=== PATIENT | female | born 1995 | race African-American/Black ===

== ENCOUNTER 2021-04-13 20:44 | Inpatient (IN) | payer OTHER ==
[~2021-04-13] VITALS: Ht 157.5 cm; Wt 72.0 kg
--- NOTE | 2021-04-13 21:07 | PHYS DOC ---
General Adult EDM: Chief Complaint: MULTIPLE COMPLAINTS HPI: HPI: 25-year-old female presents with 1 day history of fever, chills, body aches, sore throat. She woke up this morning and had a sore throat and felt generally terrible. Throughout the day she has had fatigue and body aches. Prior to arrival in the emergency room her fever increased to 102 and that is why she came in. She also has a very sore throat. She was vaccinated against COVID-19. Her last dose was 1 month ago. She was feeling fine yesterday. Review of Systems: Review of Systems: Constitutional: Fever, chills, body aches, fatigue Eyes: Denies change in visual acuity HENT: sore throat Respiratory: Denies cough or shortness of breath Cardiovascular: Denies chest pain or edema GI: Denies abdominal pain, nausea, vomiting, bloody stools or diarrhea : Denies dysuria Musculoskeletal: Denies back pain or joint pain Integument: Denies rash Neurologic: Denies headache, focal weakness or sensory changes Endocrine: Denies polyuria or polydipsia Lymphatic: Denies swollen glands Psychiatric: Denies depression or anxiety Allergies: Allergies: Allergies Coded Allergies Type Severity Reaction Last Updated Verified No Known Drug Allergies 04/13/21 No Physical Exam: PE: Constitutional: Well developed, well nourished, no acute distress, non-toxic appearance. [] HENT: Normocephalic, atraumatic, bilateral external ears normal, oropharynx dry, erythematous with bilateral tonsillar exudates nose normal. [] Eyes: PERRLA, EOMI, conjunctiva normal, no discharge. [] Neck: Normal range of motion, no tenderness, supple, no stridor. Bilateral prominent anterior cervical lymph nodes. [] Cardiovascular: Heart rate 137, regular rhythm, no murmur [] Lungs & Thorax: Bilateral breath sounds clear to auscultation [] Abdomen: Bowel sounds normal, soft, no tenderness, no masses, no pulsatile masses. [] Skin: Warm, dry, no erythema, no rash. [] Back: No tenderness, no CVA tenderness. [] Extremities: No tenderness, no cyanosis, no clubbing, ROM intact, no edema. [] Neurologic: Alert and oriented X 3, normal motor function, normal sensory function, no focal deficits noted. [] Psychologic: Affect normal, judgement normal, mood normal. [] EKG: EKG: Sinus rhythm, rate 134, normal axis, no ST elevation or depression. [] Radiology/Procedures: Radiology/Procedures: [] Impressions: EXAMINATION: Chest radiograph. VIEWS: 1 COMPARISON: None INDICATION:25 years, Female, fever. FINDINGS: Normal cardiomediastinal silhouette. No focal consolidation. No pleural effusion or pneumothorax. No acute osseous process. IMPRESSION: No acute cardiopulmonary process. Electronically signed by: Nelson Butler MD (04/13/2021 9:53 PM) [facility] DICTATED AND SIGNED BY: NELSON BUTLER MD DATE: 04/13/212152 CC: ALESSANDRO YUN DO; PCP,UNKNOWN ~MTH0 0 Heart Score: C/O Chest Pain: N/A Risk Factors: Risk Factors: DM, Current or recent (<one month) smoker, HTN, HLP, family history of CAD, obesity. Risk Scores: Score 0 - 3: 2.5% MACE over next 6 weeks - Discharge Home Score 4 - 6: 20.3% MACE over next 6 weeks - Admit for Clinical Observation Score 7 - 10: 72.7% MACE over next 6 weeks - Early Invasive Strategies Course & Med Decision Making: Course & Med Decision Making Pertinent Labs and Imaging studies reviewed. (See chart for details) The patient's labs are unremarkable. Patient's presentation is worse than her with lab results. She looks quite ill and uncomfortable. Her heart rate is persistently 130. Her 90s over 60s but we have given her 2 L of fluids and her most recent blood pressure 134/80. Her heart rate is still 132. She is maintained on her present oxygen on room air. For her fever have given her a gram of Tylenol. I do not have a definitive source patient's infection. The rapid strep was negative but I am still quite suspicious for streptococcal infection. I have ordered a CT soft tissue of the neck and it shows tonsillitis but no peritonsillar abscess. The patient has been given a gram of Rocephin after blood cultures were drawn. Lactic acid is within normal limits. Her EKG shows sinus tachycardia with a rate of 134. Given the patient's persistent elevated heart rate and fever, will admit her to the hospital for further management. I spoke with Dr. Degroot and he has accepted the patient for admission. [] Dragon Disclaimer: Quinn Disclaimer: This electronic medical record was generated, in whole or in part, using a voice recognition dictation system. Departure Departure: Impression: Primary Impression: Strep pharyngitis Additional Impression: Sepsis Qualified Codes: A40.9 - Streptococcal sepsis, unspecified Disposition: 09 ADMITTED INPATIENT Admitting Physician: Linda Degroot Condition: GUARDED Referrals: PCP,UNKNOWN (PCP) Sepsis Assessment: Date and Time of Assessment Date: Apr 13, 2021 Time: 22:00 Vital Signs Vital Signs Vital Signs Date Time Temp Pulse Resp B/P (MAP) Pulse Ox O2 Delivery O2 Flow Rate FiO2 04/14/21 00:58 134 20 100/70 (80) 98 Room Air 04/13/21 21:01 103.0 Respirations Respiratory Effort: Normal Respiratory Pattern: Normal Cardiovascular Pulse Rhythm: Regular HEART: S1 and S2 normal Lung Sounds Breath Sounds: Clear Capillary Refill Capillary Refill: Rt Hand < 3 seconds Peripheral Pulse Pulse Location: Monitor Pulse Strength: Normal (2+) Pulse Assessment Method: Monitor Integumentary Skin: Warm Skin Moisture: Dry Skin Turgor: Decreased Skin Color: no erythema Fingernail Color: WNL Sepsis Assessment: Date and Time of Assessment Date: Apr 14, 2021 Time: 01:42 Vital Signs Vital Signs Vital Signs Date Time Temp Pulse Resp B/P (MAP) Pulse Ox O2 Delivery O2 Flow Rate FiO2 04/14/21 00:58 134 20 100/70 (80) 98 Room Air 04/13/21 21:01 103.0 Respirations Respiratory Effort: Normal Respiratory Pattern: Normal Cardiovascular Pulse Rhythm: Regular HEART: S1 and S2 normal Lung Sounds Breath Sounds: Clear Capillary Refill Capillary Refill: Rt Hand < 3 seconds Peripheral Pulse Pulse Location: Monitor Pulse Strength: Normal (2+) Pulse Assessment Method: Monitor Integumentary Skin: Warm Skin Moisture: Dry Skin Turgor: Normal Skin Color: no erythema Fingernail Color: WNL ALESSANDRO YUN DO Apr 13, 2021 21:07
[2021-04-13] MEDS ORDERED: IV NORMAL SALINE 1,000ML 1,000 ML IV ONE ×2 (21:15→23:00)
[2021-04-13] MEDS ORDERED: ACETAMINOPHEN 500 MG TABLET PO ONE (21:15)
--- NOTE | 2021-04-13 21:56 | RAD ---
EXAMINATION: Chest radiograph. VIEWS: 1 COMPARISON: None INDICATION:25 years, Female, fever. FINDINGS: Normal cardiomediastinal silhouette. No focal consolidation. No pleural effusion or pneumothorax. No acute osseous process. IMPRESSION: No acute cardiopulmonary process. Electronically signed by: Mary Ann Butler MD (04/13/2021 9:53 PM) [facility]
[2021-04-13 22:01] LABS: INFLUENZA A PATIENT NEGATIVE (NEGATIVE); INFLUENZA B PATIENT NEGATIVE (NEGATIVE)
[2021-04-13] MEDS ORDERED: IV NORMAL SALINE 50ML 50 ML ONE (22:59)
[2021-04-13] MEDS ORDERED: cefTRIAXone SODIUM 1 GM VIAL ONE (22:59)
[2021-04-13 23:59] LABS: BARBITURATES NEG (NEG); BENZODIAZEPINES NEG (NEG); CANNABINOIDS NEG (NEG); COCAINE NEG (NEG); METHADONE NEG (NEG); OPIATES NEG (NEG); PHENCYCLIDINE NEG (NEG)
[2021-04-14] LABS: BACTERIA,URINE 0 /HPF (0-FEW); BILIRUBIN,URINE NEG (NEG); CLARITY,URINE CLEAR; COLOR,URINE YELLOW; GLUCOSE,URINE NEG (NEG); NITRITE,URINE NEG (NEG); RBC,URINE OCC /HPF (0-2); SQUAMOUS EPITHELIAL CELL,UR OCC /LPF; UROBILINOGEN,URINE 0.2 mg/dL (0.2 mg/dL); WBC,URINE OCC /HPF (0-4)
[2021-04-14 00:04] LABS: AMPHETAMINE/METHAMPHETAMINE NEG (NEG)
[2021-04-14 00:08] LABS: BASO % 0 % (0-3); EOS % 0 % (0-3); HEMATOCRIT 37.7 % (36.0-47.0); HEMOGLOBIN 12.5 g/dL (12.0-15.5); LYMPH # 0.5 x10^3/uL (1.0-4.8); LYMPH % 7 % (24-48); MEAN CORPUSCULAR HEMOGLOBIN 29 pg (25-35); MEAN CORPUSCULAR HGB CONC 33 g/dL (31-37); MEAN CORPUSCULAR VOLUME 86 fL (79-100); MONO # 0.9 x10^3/uL (0.0-1.1); MONO % 11 % (0-9); NEUT # 6.6 x10^3uL (1.8-7.7); NEUT % 82 % (31-73); PLATELET COUNT 218 x10^3/uL (140-400); RED BLOOD COUNT 4.38 x10^6/uL (3.50-5.40); RED CELL DISTRIBUTION WIDTH 12.8 % (11.5-14.5)
[2021-04-14 00:09] LABS: CALCIUM 9.3 mg/dL (8.5-10.1); CREATININE 0.6 mg/dL (0.6-1.0); GFR 147.4; POTASSIUM 3.9 mmol/L (3.5-5.1)
[2021-04-14 00:15] LABS: ALBUMIN 3.4 g/dL (3.4-5.0); ALBUMIN/GLOBULIN RATIO 0.9 (1.0-1.7); TOTAL BILIRUBIN 0.3 mg/dL (0.2-1.0); TOTAL PROTEIN 7.4 g/dL (6.4-8.2)
[2021-04-14] MEDS ORDERED: IOHEXOL 300 MG/ML 75 ML VIAL. IV ONE (00:30)
[2021-04-14] MEDS ORDERED: CONTRAST GIVEN. MC PRN (00:30)
--- NOTE | 2021-04-14 01:20 | RAD ---
PQRS Compliance Statement: One or more of the following individualized dose reduction techniques were utilized for this examinat ion: 1. Automated exposure control 2. Adjustment of the mA and/or kV according to patient size 3. Use of iterative reconstruction technique CT NECK SOFT TISSUE WITH IV CONTRAST 04/14/2021 12:12 AM Indication: Swollen tonsils, fever COMPARISON: None available. TECHNIQUE: Multiple axial CT images of the neck were obtained after the intravenous administration of nonionic contrast. Coronal and sagittal reformats are provided. FINDINGS: No suspicious abnormality identified involving the visualized portions of the brain parenchyma and po sterior fossa. The skull base is normal. The visualized paranasal sinuses are well aerated. Orbital c ontents appear normal. The sella turcica and cavernous sinus regions appear intact. The mastoid air c ells are well aerated. The fossa of Rosenmuller is normal. Nasopharynx is normal in appearance. The parotid space contents a nd sat instructor space contents appear intact. The parapharyngeal spaces are normal. The submandibular contents appear intact. Oral cavity, floor of mouth and sublingual space appear normal.. Symmetric enlargement of the tonsils. The epiglottis, aryepiglottic folds, and piriform sinuses are n ormal. The vallecula appears normal. The larynx and trachea are normal. The thyroid gland is normal in appearance. The carotid space contents are normal. Bilateral enlarged level 2 cervical lymph nodes measuring up t o 1.5 cm in the right hand 1.5 cm of the left. There is a right retropharyngeal lymph node measuring 0.8 cm. The perivertebral space contents are normal. The supraclavicular regions appear intact. The visualiz ed mediastinum is normal. The visualized lungs appear clear. No significant osseous abnormality. IMPRESSION: Enlarged bilateral level 2 cervical lymph nodes, likely reactive. Symmetric enlargement of the tonsil s suggestive of tonsillitis. No peritonsillar abscess or retropharyngeal effusion. Electronically signed by: Traci Valderrama MD (04/14/2021 1:17 AM) [facility]
[2021-04-14] MEDS ORDERED: ONDANSETRON PF 4 MG/2 ML VIAL. IVP PRN (02:00)
[2021-04-14 02:15] LABS: MONONUCLEOSIS PATIENT NEGATIVE (NEGATIVE)
[2021-04-14 03:39] VITALS: BP 96/59
[2021-04-14] MEDS: IV NORMAL SALINE 1,000ML 1,000 ML IV SCH ×3 (03:45→23:45)
--- NOTE | 2021-04-14 04:34 | EKG ---
[address] [address] Test Date: 2021-04-14 Test Time: 01:18:48 Pat Name: THEODORA PICKETT Department: Room: 119 A Gender: F Sandwich Hand: : 1995 Requested By: ALESSANDRO YUN Order Number: [id number] Reading MD: Garrison Stafford Measurements Intervals [place] Rate: 134 P: CA: QRS: 93 QRSD: 72 T: 66 QT: 330 QTc: 500 Interpretive Statements SINUS TACHYCARDIA RIGHTWARD AXIS OTHERWISE NORMAL ECG RI6.02 No previous ECG available for comparison Electronically Signed On 04-19-2021 10:13:54 TRAVEL OCCUPATIONAL THERAPIST by Garrison Stafford
[2021-04-14 06:01] VITALS: BP 93/57
[2021-04-14] MEDS: ACETAMINOPHEN 325 MG TABLET PO PRN ×3 (08:00→16:57)
[2021-04-14 10:32] VITALS: BP 96/60
--- NOTE | 2021-04-14 12:39 | HP ---
DATE OF SERVICE: 04/14/2021 ADMIT DATE: 04/14/2021 HISTORY OF PRESENT ILLNESS: The patient is a 25-year-old -[place] female patient who came to the Emergency Room with a complaint of 1 day's history of fever, chills, body aches, and sore throat. She woke up and had a sore throat and felt generally terrible throughout the day. She has had fatigue and body aches. Prior to arrival in the Emergency Room, she spiked a temperature up to 102, that is why she came in. She also had a very sore throat. She was vaccinated against COVID-19, the last dose was about 1 month ago. The day before yesterday, she was feeling fine. None of her family has similar symptoms. She was extensively investigated. She had lab work done, showed white cell count was normal. Her chemistry was mostly unremarkable, and her toxic screen negative. Urinalysis was unremarkable; however, her heterophile agglutinins were negative. Influenza A and B were negative, and group A Streptococcus rapid testing was negative. She has had a chest x-ray, which was unremarkable. CT scan of the soft tissues of the neck showed enlarged bilateral level 2 cervical lymph nodes, likely reactive. Symmetric enlargement of the tonsils suggestive of tonsillitis, no peritonsillar abscess or retropharyngeal abscess or effusion. She was given IV fluid and IV ceftriaxone, was admitted for further evaluation and treatment. PAST MEDICAL HISTORY: Unremarkable. PAST SURGICAL HISTORY: Significant for . ALLERGIES: She has no known drug allergies. MEDICATIONS: She is currently on no prescribed medications: She takes Tylenol [id number] at times. FAMILY HISTORY: Unremarkable. SOCIAL HISTORY: She is , has 1 child. She apparently does not smoke, drink alcohol, or use recreational drugs. REVIEW OF SYSTEMS: As per history of present illness. PHYSICAL EXAMINATION: GENERAL: On arrival to the Emergency Room, the patient was tachycardic, somewhat hypotensive. VITAL SIGNS: Her heart rate was 136, blood pressure was 92/50, temperature was 103 Fahrenheit, respiratory rate was 20, and oxygen saturation was 98% on room air. HEAD, EYES, EARS, NOSE, AND THROAT: Normocephalic, atraumatic. NECK: Supple. HEART: Normal first and second heart sounds. No gallop, rub, or murmur. CHEST: Clear to auscultation. No crepitation or rhonchi. ABDOMEN: Distended, soft, nontender. NEUROLOGIC: She was awake, alert, responding appropriately. Cranial nerves intact. She moves extremities without difficulty. She ambulates without assistance or assistive devices. LABORATORY DATA: On admission showed a white cell count of 8000, hemoglobin 12.5, hematocrit 37, MCV 86, and platelet count 218,000 with a normal manual differential showed 82% polymorphs, 7% lymphocytes, and 11% monocytes. Her serum sodium is 135, potassium 3.9, chloride 101, bicarbonate 23, anion gap of 11, BUN 11, creatinine 0.6. Estimated GFR was 147 mL per minute. Her glucose was 92. Lactic acid is 1.2. Total bilirubin, AST, ALT, alkaline phosphatase were normal. Total protein 7.4, albumin was 3.4. Urinalysis was unremarkable. Toxic screen was negative. ASSESSMENT AND PLAN: The patient was treated with IV fluid, IV ceftriaxone with probably streptococcal pharyngitis/tonsillitis plus sepsis. We will continue with IV fluid. Continue with ceftriaxone and Tylenol for fever and if she needs something stronger, we can start also on oxycodone and decide further management accordingly. GISELLE DR: Sadi TID: [id number]
[2021-04-14 14:45] VITALS: BP 120/77
--- NOTE | 2021-04-14 16:28 | EKG ---
[address] [address] Test Date: 2021-04-14 Test Time: 16:15:18 Pat Name: THEODORA PICKETT Department: Room: 119 A Gender: F Licensed Insurance Agent: : [id number] Requested By: PRANAY TRUJILLO Order Number: [id number] Reading MD: Garrison Stafford Measurements Intervals [place] Rate: 119 P: 43 GA: 176 QRS: 0 QRSD: 80 T: 25 QT: 232 QTc: 331 Interpretive Statements SINUS TACHYCARDIA LEFTWARD AXIS MILD NON SPECIFIC ST CHANGES Electronically Signed On 04-19-2021 10:08:20 SIGN CARPENTER by Garrison Stafford
[2021-04-14] MEDS: BENZOCAINE/MENTHOL LOZNGE 18'S BOX. PO PRN (16:57)
[2021-04-14 19:46] VITALS: BP 118/80
[2021-04-14] MEDS: oxyCODONE IR 5 MG TABLET PO PRN (20:14)
[2021-04-14 23:25] VITALS: BP 110/73
[2021-04-15 05:56] LABS: HEMATOCRIT 36.8 % (36.0-47.0); HEMOGLOBIN 11.9 g/dL (12.0-15.5); RED BLOOD COUNT 4.21 x10^6/uL (3.50-5.40); RED CELL DISTRIBUTION WIDTH 12.7 % (11.5-14.5); WHITE BLOOD COUNT 5.4 x10^3/uL (4.0-11.0)
[2021-04-15 06:19] LABS: ALBUMIN 2.8 g/dL (3.4-5.0); ALBUMIN/GLOBULIN RATIO 0.7 (1.0-1.7); CALCIUM 8.6 mg/dL (8.5-10.1); CREATININE 0.5 mg/dL (0.6-1.0); GFR 181.9; POTASSIUM 3.8 mmol/L (3.5-5.1); TOTAL BILIRUBIN 0.2 mg/dL (0.2-1.0); TOTAL PROTEIN 6.7 g/dL (6.4-8.2)
[2021-04-15 06:21] VITALS: BP 123/84
[2021-04-15] MEDS ORDERED: ONDANSETRON PF 4 MG/2 ML VIAL. IVP PRN (08:30)
[2021-04-15] MEDS: oxyCODONE IR 5 MG TABLET PO PRN (08:36)
[2021-04-15] MEDS: IV NORMAL SALINE 1,000ML 1,000 ML IV SCH ×2 (08:37→19:54)
[2021-04-15] MEDS: LACTOBACILLUS RHAMNOSUS GG 1 CAPSULE. PO SCH ×2 (09:28→21:22)
[2021-04-15 11:01] VITALS: BP 109/72
[2021-04-15] MEDS: MORPHINE SULFATE 4 MG/ML DISP.SYRIN. IV PRN ×3 (13:21→21:21)
[2021-04-15 15:12] VITALS: BP 113/75
[2021-04-15 18:34] VITALS: BP 110/68
[2021-04-15 22:56] VITALS: BP 112/73
--- NOTE | 2021-04-15 23:20 | PN ---
DATE: 04/15/2021 SUBJECTIVE: The patient is resting, slightly propped up in bed, feeling slightly better, continued to have sore throat, difficulty swallowing, continued to have episodes of sinus tachycardia, did have a spike in her temperature this morning to 100-degree Fahrenheit. PHYSICAL EXAMINATION: GENERAL: When I examined her, she looked well and was clearly in no apparent respiratory distress. No pallor, jaundice, cyanosis or thyromegaly. No jugular venous distention. No limb edema. VITAL SIGNS: Her heart rate was 110, blood pressure was 123/84, temperature was 99.7, respiratory rate 20, and oxygen saturation was 99% on room air. HEAD, EYES, EARS, NOSE, AND THROAT: Showed normocephalic, atraumatic. Examination of the throat showed that she has enlarged tonsils on both sides with some whitish spots in her right tonsil. NECK: Supple, with palpable lymph node. HEART: Showed normal first and second heart sounds, no gallop or murmur. CHEST: Clear to auscultation. No crepitation or rhonchi. ABDOMEN: Scaphoid, soft, nontender. NEUROLOGIC: She was grossly intact. Her intake and output are incompletely recorded. LABORATORY DATA: This morning showed a serum sodium of 137, potassium 3.8, chloride 105, bicarbonate 24, anion gap of 8, BUN 6, creatinine 0.5. Estimated GFR was 181 mL per minute. Her glucose was 77, calcium was 8.6. Total bilirubin, AST, ALT, alkaline phosphatase were normal. Total protein was 6.7, albumin was 2.8. White cell count was 5400, hemoglobin 12, hematocrit 36, MCV 87 and platelet count of 175,000. Urinalysis essentially unremarkable, and toxic screen was negative. Her coronavirus by PCR was not detectable. ASSESSMENT: Acute tonsillitis/pharyngitis. PLAN: To continue with IV fluid, IV antibiotic and pain medication. Add SCDs for DVT prophylaxis. We will follow her closely, and once she is able to swallow and her temperature and heart rate subsides, she can be discharged home to continue on oral antibiotic. DON DR: Sadi TID: [id number]
[2021-04-16] MEDS: MORPHINE SULFATE 4 MG/ML DISP.SYRIN. IV PRN ×3 (01:43→15:30)
[2021-04-16 06:01] VITALS: BP 94/59
[2021-04-16 06:25] LABS: BASO % 0 % (0-3); EOS % 1 % (0-3); HEMATOCRIT 36.5 % (36.0-47.0); HEMOGLOBIN 11.9 g/dL (12.0-15.5); LYMPH # 1.7 x10^3/uL (1.0-4.8); LYMPH % 43 % (24-48); MEAN CORPUSCULAR HEMOGLOBIN 29 pg (25-35); MEAN CORPUSCULAR HGB CONC 33 g/dL (31-37); MEAN CORPUSCULAR VOLUME 88 fL (79-100); MONO # 0.8 x10^3/uL (0.0-1.1); MONO % 19 % (0-9); NEUT # 1.5 x10^3uL (1.8-7.7); NEUT % 37 % (31-73); PLATELET COUNT 209 x10^3/uL (140-400); RED BLOOD COUNT 4.16 x10^6/uL (3.50-5.40); RED CELL DISTRIBUTION WIDTH 12.8 % (11.5-14.5); WHITE BLOOD COUNT 4.1 x10^3/uL (4.0-11.0)
[2021-04-16 06:41] LABS: ALBUMIN 2.7 g/dL (3.4-5.0); ALBUMIN/GLOBULIN RATIO 0.7 (1.0-1.7); CREATININE 0.5 mg/dL (0.6-1.0); GFR 181.9; POTASSIUM 3.9 mmol/L (3.5-5.1); TOTAL BILIRUBIN 0.1 mg/dL (0.2-1.0); TOTAL PROTEIN 6.8 g/dL (6.4-8.2)
[2021-04-16] MEDS: LACTOBACILLUS RHAMNOSUS GG 1 CAPSULE. PO SCH ×2 (08:06→20:59)
[2021-04-16] MEDS: IV NORMAL SALINE 1,000ML 1,000 ML IV SCH ×2 (08:08→20:58)
[2021-04-16 08:13] LABS: % EOS 1 % (0-5); % LYMPHS 51 % (24-48); % MONOS 13 % (0-10); % SEGS 35 % (35-66); PLT ESTIMATE ADEQUATE (ADEQUATE)
[2021-04-16 10:48] VITALS: BP 103/70
[2021-04-16 15:12] VITALS: BP 97/65
[2021-04-16 19:00] VITALS: BP 99/64
[2021-04-16] MEDS: BENZOCAINE/MENTHOL LOZNGE 18'S BOX. PO PRN (22:50)
[2021-04-16 22:52] VITALS: BP 102/64
[2021-04-17] MEDS: MORPHINE SULFATE 4 MG/ML DISP.SYRIN. IV PRN (00:08)
--- NOTE | 2021-04-17 00:41 | PN ---
DATE: 04/16/2021 SUBJECTIVE: The patient is resting, slightly propped up in bed, in no apparent distress. She continues to complain of sore throat and difficulty swallowing, able to drink so far, has not been able to eat solid food; however, she has been afebrile for more than 24 hours. PHYSICAL EXAMINATION: GENERAL: When I examine her, she looks well and is clearly in no apparent respiratory distress. VITAL SIGNS: Her heart rate is 96, blood pressure is 103/70, temperature is 98.3, respiratory rate is 18 and oxygen saturation is 99% on room air. HEAD, EYES, EARS, NOSE, AND THROAT: Normocephalic, atraumatic. Examination of the oropharynx show that her tonsils are definitely much smaller although continue to be large and most of the erythema has largely subsided. She continues to have some lymph nodes, both sides of the neck but the rest of the exam is stable, has not really changed. Her intake was 2370, no output was recorded. LABORATORY DATA: Showed a serum sodium 139, potassium 3.9, chloride 105, bicarbonate 28, anion gap of 6, BUN 6, creatinine 0.5. Estimated GFR was 181 mL per minute. Her glucose was 93. Calcium was 9. Total bilirubin, AST, ALT, alkaline phosphatase were normal. Total protein 6.8, albumin 2.7. Her white cell count was 4000, hemoglobin 12, hematocrit 36, MCV 88 and platelet count 209,000. ASSESSMENT: Acute tonsillitis versus pharyngitis. PLAN: To continue with IV fluid, IV antibiotics, pain medication. I am hoping to discharge her home tomorrow on oral antibiotics. We advance her diet as tolerated. SUJEY DR: SUJEY/gerry TID: [id number]
[2021-04-17] MEDS: IV NORMAL SALINE 1,000ML 1,000 ML IV SCH (07:38)
[2021-04-17] MEDS: LACTOBACILLUS RHAMNOSUS GG 1 CAPSULE. PO SCH (08:45)
[2021-04-17 10:38] VITALS: BP 101/71
[2021-04-17 11:27] VITALS: BP 114/64
[2021-04-17] MEDS ORDERED: HYDR-2155 PO (12:59)
[2021-04-17] MEDS ORDERED: CEFD300C PO (12:59)
== END 2021-04-17 14:12 | disposition home or self-care (01) | DRG 872 ==
LOC: ER 20:44 → 1 SOUTH 04-14 01:56
PROVIDERS: ADMIT Internal Medicine; ATTEND Internal Medicine
DX: A40.9 Streptococcal sepsis, unspecified (principal); J02.0 Streptococcal pharyngitis; Z20.822 Contact with and (suspected) exposure to COVID-19
CPT/HCPCS: 36415; 70491; 71045; 80053; 80307; 81001; 83605; 85007; 85025; 85027; 86308; 87040; 87070; 87426; 87804; 87880; 93005; 96361; 96365; J0696; J2270; J2405; Q9967; U0003; 99285-25; J7030